=== PATIENT | male | born 1935 | race Native Hawaiian/Other Pacific Islander ===

== ENCOUNTER → 2020-06-20 | Outpatient (CLI) | payer MEDICARE ==
[~2020-06-20] MED LIST: ACHD5005 PO
== END | disposition home or self-care (01) ==
LOC: PREOP 13:28
PROVIDERS: ATTEND Surgery
DX: Z01.818 Encounter for other preprocedural examination (principal)

== ENCOUNTER → 2020-06-21 | Day surgery (SDC) | payer MEDICARE ==
[~2020-06-21] VITALS: Ht 182.9 cm; Wt 83.5 kg
[2020-06-21] VITALS (11 sets, daily range): BP systolic 132–156; BP diastolic 66–95
[~2020-06-21] MED LIST changes: +ACETAMINOPHEN 325 MG TABLET PO PRN; +BUP/EPI 0.25% 1:200,000 (MARCAINE) 30 ML VIAL ONE; +CATHETER FLUSH 10 ML SYR IV PRN; +FAMOTIDINE 20MG/2ML IV (PEPCID) IV ONE; +FAMOTIDINE 20MG/2ML IV (PEPCID) ONE; +HYDROcodone/APAP 5 MG/325 MG (LORTAB) TAB ONE; +HYDROcodone/APAP 5 MG/325 MG (LORTAB) TAB PO ONE; +LACTATED RINGERS 1,000 ML IV PRN; +LIDOCAINE PF 2% 5 ML (XYLOCAINE) VIAL ONE; +LIDOCAINE/EPI 1%-1:100,000 (XYLOCAINE) 20ML ONE; +MUPIROCIN 2% OINT 22 GM (BACTROBAN) TUBE ONE; +ONDANSETRON 4 MG/2 ML (SDV) Z0FRAN IVP PRN; +ONDANSETRON 4 MG/2 ML (SDV) Z0FRAN ONE; +SEVOFLURANE (ULTANE) 15 ML INHAL SOLN ONE; +ceFAZolin 2 GM IV Premixed 50 ML IV ONE; +fentaNYL INJECTION 100 MCG/2 ML AMP ONE; +morphine INJ 10 MG/ML 1ML (SYR OR VIAL) IVP ONE; +morphine INJ 10 MG/ML 1ML (SYR OR VIAL) IVP PRN; +proPOfol 200 MG/20 ML (DIPRIVAN) VIAL IV ONE
--- NOTE | 2020-06-21 10:25 | Discharge Inst-Surgical ---
D/C Lap Instructions-KIDO Reconcile Patient Problems Problems Reviewed?: Yes New, Converted, or Re-Newed RX: RX on Chart Follow Up Appt in 2 weeks Activity as tolerated No driving for 24 hours No driving while on pain medications Incentive Spirometry use every 2 hours while awake Regular Diet Symptoms to Report: Fever over 101 degree F, Nausea/Vomiting Infection Signs and Symptoms to report: Increased redness, Foul odor of wound, Increased drainage Bathing instructions: May shower Operative Area Clean/Dry; Keep incision clean/dry If any problems/questions: Contact your physician or go to Emergency Room SURESH MUSA APRN Jun 21, 2020 10:25
--- NOTE | 2020-06-21 10:28 | Progress Note-Pre Operative ---
Pre-Operative Progress Note H&P Reviewed The H&P was reviewed, patient examined and no changes noted. Date Seen by Provider: Jun 21, 2020 Time Seen by Provider: 10:20 Date H&P Reviewed: Jun 21, 2020 Time H&P Reviewed: 10:13 Pre-Operative Diagnosis: symptomatic skin lesions top of scalp, left ear, and right ankle SURESH MUSA APRN Jun 21, 2020 10:28
--- NOTE | 2020-06-21 14:33 | Progress Note-Post Operative ---
Post-Operative Progess Note Surgeon (s)/Typesetter Perforator Operator (s) Surgeon CLEMENT BELLE MD Typesetter Perforator Operator: fior bravo APRN Pre-Operative Diagnosis SKIN LESIONS Post-Operative Diagnosis symptomatic skin lesions forehead(3x3cm), left ear(4x2cm), right ankle(4x2cm). Procedure & Operative Findings Date of Procedure 06/21/20 Procedure Performed/Findings full thickness excision symptomatic skin lesions forehead(3x3cm) with full thickness skin graft from right neck, left ear(4x2cm) with complex skin flap closure, right ankle(4x2cm) with moderate skin flap closure. Anesthesia Type general LMA with local Estimated Blood Loss Estimated blood loss (mL): minimal Specimens/Packing Specimens Removed skin lesion forehead, left ear, right ankle. CLEMENT BELLE MD Jun 21, 2020 14:33
--- NOTE | 2020-06-22 01:27 | OPERATIVE REPORT ---
DATE OF SERVICE: 06/21/2020 ATTENDING SHOWROOM SALESPERSON: Mariana Pompa APRN. PREOPERATIVE DIAGNOSIS: Symptomatic skin lesion, forehead, left ear, right ankle. POSTOPERATIVE DIAGNOSES: Symptomatic skin lesion, forehead, left ear, right ankle with lesion of the forehead 3 x 3 cm in size, of the left ear 4 x 2 cm in size, and of the right ankle 4 x 2 cm. PROCEDURE PERFORMED: Excision forehead lesion 3 x 3 cm in size with full thickness skin graft taken from the right neck; excision right ear lesion 4 x 2 cm in size with a complex skin flap closure; excision right anterior ankle lesion 4 x 2 cm in size with moderate complexity skin flap closure. SURGEON: Shama Belle MD. SUPERVISOR TOY ASSEMBLY: Mehrdad Lund APRN. ANESTHESIA: General laryngeal mask airway with local. ESTIMATED BLOOD LOSS: Minimal. FINDINGS: Same as postoperative diagnoses. DISPOSITION: The patient tolerated the procedure well. INDICATIONS: The patient is an 85-year-old male, who was referred over to us for three symptomatic lesions. He has had one on his forehead, right of midline for the past several years and states that this would become raised, hyperkeratotic; however, would then usually come off; however, in the past year, this has grown significantly larger in size. Upon examination, the lesion is large exophytic and appears consistent with a basal or squamous cell skin cancer. This lesion was 3 x 3 cm in size. He also has a left ear lesion, which is recurrent. He states that approximately 3 years ago, a skin lesion was identified and this was excised and he again has an exophytic skin lesion of the superior aspect of the left external ear. He also does have a raised skin lesion of the right anterior ankle 4 x 2 cm in size. DESCRIPTION OF PROCEDURE: The patient was brought to the endoscopy suite to the operating room, laid supine on the table. After adequate IV pain and sedative medications and laryngeal mask airway intubation, the ear, forehead and ankle were prepped and draped in standard surgical fashion. We first proceeded with excision of the forehead lesion. This was measured out approximately 3 x 3 cm and fully excised to the aponeurosis using a 15 blade. Good hemostasis was achieved using electrocautery. We then proceeded to take a full-thickness skin graft taken from the base of the right neck 3 x 3 cm in size and full thickness. We then proceeded with a full thickness skin graft to the forehead using interrupted 4-0 Prolene sutures. Good hemostasis was observed. The donor site was then closed by reapproximating the subcutaneous tissue using 4-0 Vicryl interrupted suture, and closing the skin with 4-0 Monocryl running subcuticular suture. We then proceeded with excision of the left ear skin lesion, which was long and along the curvature of the superior and posterior portion of the external ear. The excised area was approximately 4 x 2 cm. This was also encompassing the cartilage of the ear, which was also resected using 15 blade. Good hemostasis was achieved using electrocautery. We then proceeded with a complex skin flap closure after dissecting lateral flaps using Metzenbaum scissors. The skin was then closed using interrupted 4-0 Prolene sutures. The right anterior ankle skin lesion was then excised full thickness using a 15 blade. Moderate complexity lateral skin flaps were then created using Metzenbaum scissors. The lesion was then excised using a 15 blade. The subcutaneous tissue was then reapproximated using 4-0 Vicryl interrupted sutures. Skin was closed using 4-0 Prolene interrupted sutures. The wounds of the forehead and ear were then covered with bacitracin ointment followed by a nonstick gauze. The ankle lesion was covered with a sterile gauze. The patient tolerated the procedure well. We will start IV normal pain medication as well as a clear liquid diet. Once he is tolerating clears, has good pain control with oral pain medications, ambulating well, we will discharge him home. We will have him follow up in approximately one week to reevaluate the wounds as well as to possibly remove a portion of the sutures. Job ID: [id number] DocumentID: [id number] Dictated Date: 06/21/2020 14:42:45 Paving Supervisor Date: 06/22/2020 01:27:11 Dictated By: SHAMA BELLE MD
--- NOTE | 2020-06-22 08:32 | Anesthesia-General Post-Op ---
General Patient Condition Mental Status/LOC: Same as Preop Cardiovascular: Satisfactory Nausea/Vomiting: Absent Respiratory: Satisfactory Pain: Controlled Complications: Absent Post Op Complications Complications None Follow Up Care/Instructions Patient Instructions None needed. Anesthesia/Patient Condition Patient Condition Patient was seen after the procedure yesterday and he was doing well, no complaints, stable vital signs, no apparent adverse anesthesia problems. ABDIFATAH TYSON DO Jun 22, 2020 08:32
== END ==
LOC: SDC 10:00
PROVIDERS: ATTEND Surgery
DX: C44.712 Basal cell carcinoma of skin of right lower limb, including hip (principal); C44.42 Squamous cell carcinoma of skin of scalp and neck; D04.4 Carcinoma in situ of skin of scalp and neck; C44.219 Basal cell carcinoma of skin of left ear and external auricular canal; I25.10 Atherosclerotic heart disease of native coronary artery without angina pectoris; J44.9 Chronic obstructive pulmonary disease, unspecified; K21.9 Gastro-esophageal reflux disease without esophagitis; Z79.899 Other long term (current) drug therapy; Z95.5 Presence of coronary angioplasty implant and graft
CPT/HCPCS: 87081; 88305; 88341; 88342

== ENCOUNTER 2021-01-16 19:33 | Emergency (ER) | payer MEDICARE ==
[~2021-01-16] VITALS: Ht 182.9 cm; Wt 79.5 kg
[~2021-01-16 19:33] MED LIST changes: -ACETAMINOPHEN 325 MG TABLET PO PRN; -BUP/EPI 0.25% 1:200,000 (MARCAINE) 30 ML VIAL ONE; -CATHETER FLUSH 10 ML SYR IV PRN; -FAMOTIDINE 20MG/2ML IV (PEPCID) IV ONE; -FAMOTIDINE 20MG/2ML IV (PEPCID) ONE; -HYDROcodone/APAP 5 MG/325 MG (LORTAB) TAB ONE; -HYDROcodone/APAP 5 MG/325 MG (LORTAB) TAB PO ONE; -LACTATED RINGERS 1,000 ML IV PRN; -LIDOCAINE PF 2% 5 ML (XYLOCAINE) VIAL ONE; -LIDOCAINE/EPI 1%-1:100,000 (XYLOCAINE) 20ML ONE; -MUPIROCIN 2% OINT 22 GM (BACTROBAN) TUBE ONE; -ONDANSETRON 4 MG/2 ML (SDV) Z0FRAN IVP PRN; -ONDANSETRON 4 MG/2 ML (SDV) Z0FRAN ONE; -SEVOFLURANE (ULTANE) 15 ML INHAL SOLN ONE; -ceFAZolin 2 GM IV Premixed 50 ML IV ONE; -fentaNYL INJECTION 100 MCG/2 ML AMP ONE; -morphine INJ 10 MG/ML 1ML (SYR OR VIAL) IVP ONE; -morphine INJ 10 MG/ML 1ML (SYR OR VIAL) IVP PRN; -proPOfol 200 MG/20 ML (DIPRIVAN) VIAL IV ONE
[2021-01-16] MEDS ORDERED: ONDANSETRON 4 MG/2 ML (SDV) Z0FRAN IVP ONE (19:45)
[2021-01-16] MEDS ORDERED: LACTATED RINGERS 1,000 ML IV ONE (19:45)
[2021-01-16 19:46] LABS: BASOPHILS # (AUTO) 0.1 10^3/uL (0.0-0.1); BASOPHILS % (AUTO) 0 % (0-10); EOSINOPHILS # (AUTO) 0.2 10^3/uL (0.0-0.3); EOSINOPHILS % (AUTO) 2 % (0-10); HEMATOCRIT 41 % (40-54); HEMOGLOBIN 13.6 g/dL (13.3-17.7); LYMPHOCYTES # (AUTO) 2.6 10^3/uL (1.0-4.0); LYMPHOCYTES % (AUTO) 19 % (12-44); MEAN CORPUSCULAR HEMOGLOBIN 31 pg (25-34); MEAN CORPUSCULAR HGB CONC 33 g/dL (32-36); MEAN CORPUSCULAR VOLUME 95 fL (80-99); MEAN PLATELET VOLUME 11.5 fL (9.0-12.2); MONOCYTES # (AUTO) 0.9 10^3/uL (0.0-1.0); MONOCYTES % (AUTO) 7 % (0-12); NEUTROPHILS # (AUTO) 9.7 10^3/uL (1.8-7.8); NEUTROPHILS % (AUTO) 72 % (42-75); PLATELET COUNT 260 10^3/uL (130-400); WHITE BLOOD COUNT 13.6 10^3/uL (4.3-11.0)
--- NOTE | 2021-01-16 19:49 | ED Abdominal Pain ---
General Stated Complaint: ABD PAIN Source of Information: Patient Exam Limitations: Other (HARD OF HEARING) History of Present Illness Date Seen by Provider: Jan 16, 2021 Time Seen by Provider: 19:35 Initial Comments PT ARRIVES VIA EMS FROM HOME--LIVES ALONE C/O RIGHT MID AND LOWER ABDOMINAL PAIN, RADIATING TO RIGHT FLANK--PAIN BEGAN TODAY HAS HAD NAUSEA AND VOMITED X 4 TODAY--STATES HE IS GETTING SICK FROM THE PAIN NO DIARRHEA--HAS BEEN CONSTIPATED THE LAST FEW DAYS, LAST BM WAS YESTERDAY NO URINARY SYMPTOMS, OTHER THAN NORMAL SLOW STREAM/SLOW TO START NO FEVER HAS NOT TAKEN ANYTHING FOR PAIN HAS HAD PRIOR CHOLECYSTECTOMY, AND LEFT KIDNEY STONE REMOVED IN THE PAST PCP: SUJATA VAZQUEZ, SEES HERE IN [place] Allergies and Home Medications Allergies Coded Allergies: No Known Drug Allergies (Unverified , 06/20/20) Home Medications Hydrocodone/Acetaminophen 1 Each Tablet, 1 EACH PO Q4H Prescribed by: SURESH MUSA on 06/21/20 1023 Hydrocodone/Acetaminophen 1 Each Tablet, 1 EACH PO Q4-6 HOURS PRN for PAIN Prescribed by: NAZANIN GARCIA on 01/16/212125 Ketorolac Tromethamine 10 Mg Tablet, 10 MG PO Q6H Prescribed by: NAZANIN GARCIA on 01/16/212125 Ondansetron 8 Mg Tab.rapdis, 8 MG PO Q6H Prescribed by: NAZANIN GARCIA on 01/16/212125 Tamsulosin HCl 0.4 Mg Cap, 0.4 MG PO DAILY Prescribed by: NAZANIN GARCIA on 01/16/212125 Patient Home Medication List Home Medication List Reviewed: Yes Review of Systems Review of Systems Constitutional: no symptoms reported Respiratory: No Symptoms Reported Cardiovascular: No Symptoms Reported Gastrointestinal: See HPI, Abdominal Pain, Constipated, Nausea, Vomiting Genitourinary: Denies Burning; Flank Pain; Denies Hematuria, Denies Pain, Denies Urgency Musculoskeletal: see HPI, back pain Skin: no symptoms reported Psychiatric/Neurological: No Symptoms Reported Endocrine: No Symptoms Reported Hematologic/Lymphatic: No Symptoms Reported Past Ctrazll-Pmkmof-Dqcljd Hx Past Med/Social Hx: Reviewed and Corrections made Patient Social History Alcohol Use: Denies Use Drug of Choice: DENIES Smoking Status: Former Smoker Type Used: Cigarettes Recent Hopitalizations: No Seasonal Allergies Seasonal Allergies: No Past Medical History Surgeries: Yes (SKIN CANCERS REMOVED;SHAWNA;LEFT KIDNEY STONE REMOVAL;CARDIAC CATH-STENT X1) Cardiac, Coronary Stent, Gallbladder, Renal Respiratory: Yes COPD Currently Using CPAP: No Currently Using BIPAP: No Cardiac: Yes (NC WITH STENT 2006--HAS NOT SEEN PACKING AND FINAL ASSEMBLY SUPERVISOR IN YEARS) Coronary Artery Disease, Heart Attack, Hypertension Neurological: No Sexually Transmitted Disease: No HIV/AIDS: No Genitourinary: Yes Kidney Stones Gastrointestinal: Yes (S/P SHAWNA) Gall Bladder Disease Musculoskeletal: No Endocrine: No HEENT: Yes Hearing Impairment: Hard of Hearing Cancer: Yes Skin Did You Recieve Any Treatments: Yes What Type of Treatment Did You: Surgical Intervention SKIN CANCERS REMOVED FROM MULTIPLE SITES ON BODY Psychosocial: No Integumentary: Yes (SKIN CANCERS) Blood Disorders: No Physical Exam Vital Signs Vital Signs - First Documented 01/16/21 19:37 Temp 36.5 Pulse 70 Resp 18 B/P (MAP) 182/86 (118) Pulse Ox 94 O2 Delivery Room Air Capillary Refill : Height/Weight/BMI Height: '" Weight: lbs. oz. 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 nml as tested, no motor/sensory deficits, alert, normal mood/affect, oriented x 3 Skin: normal color, warm/dry; No rash Progress/Results/Core Measures Results/Orders Lab Results Laboratory Tests Test 01/16/21 19:37 01/16/21 21:13 Range/Units White Blood Count 13.6 H 4.3-11.0 10^3/uL Red Blood Count 4.36 4.30-5.52 10^6/uL Hemoglobin 13.6 13.3-17.7 g/dL Hematocrit 41 40-54 % Mean Corpuscular Volume 95 80-99 fL Mean Corpuscular Hemoglobin 31 25-34 pg Mean Corpuscular Hemoglobin Concent 33 32-36 g/dL Red Cell Distribution Width 14.4 10.0-14.5 % Platelet Count 260 130-400 10^3/uL Mean Platelet Volume 11.5 9.0-12.2 fL Immature Granulocyte % (Auto) 0 % Neutrophils (%) (Auto) 72 42-75 % Lymphocytes (%) (Auto) 19 12-44 % Monocytes (%) (Auto) 7 0-12 % Eosinophils (%) (Auto) 2 0-10 % Basophils (%) (Auto) 0 0-10 % Neutrophils # (Auto) 9.7 H 1.8-7.8 10^3/uL Lymphocytes # (Auto) 2.6 1.0-4.0 10^3/uL Monocytes # (Auto) 0.9 0.0-1.0 10^3/uL Eosinophils # (Auto) 0.2 0.0-0.3 10^3/uL Basophils # (Auto) 0.1 0.0-0.1 10^3/uL Immature Granulocyte # (Auto) 0.1 0.0-0.1 10^3/uL Prothrombin Time 13.1 12.2-14.7 SEC INR Comment 1.0 0.8-1.4 Activated Partial Thromboplast Time 32 24-35 SEC Sodium Level 141 135-145 MMOL/L Potassium Level 3.6 3.6-5.0 MMOL/L Chloride Level 109 H 98-107 MMOL/L Carbon Dioxide Level 17 L 21-32 MMOL/L Anion Gap 15 H 5-14 MMOL/L Blood Urea Nitrogen 27 H 7-18 MG/DL Creatinine 1.08 0.60-1.30 MG/DL Estimat Glomerular Filtration Rate > 60 BUN/Creatinine Ratio 25 Glucose Level 112 H 70-105 MG/DL Calcium Level 7.8 L 8.5-10.1 MG/DL Corrected Calcium 8.1 L 8.5-10.1 MG/DL Magnesium Level 1.9 1.6-2.4 MG/DL Total Bilirubin 0.8 0.1-1.0 MG/DL Aspartate Amino Transf (AST/SGOT) 19 5-34 U/L Alanine Aminotransferase (ALT/SGPT) 17 0-55 U/L Alkaline Phosphatase 175 H 40-136 U/L Troponin I < 0.028 <0.028 NG/ML Total Protein 6.5 6.4-8.2 GM/DL Albumin 3.6 3.2-4.5 GM/DL Amylase Level 59 25-125 U/L Lipase 14 8-78 U/L Urine Color YELLOW Urine Clarity CLOUDY Urine pH 6.0 5-9 Urine Specific [place] 1.025 H 1.016-1.022 Urine Protein TRACE H NEGATIVE Urine Glucose (UA) NEGATIVE NEGATIVE Urine Ketones NEGATIVE NEGATIVE Urine Nitrite NEGATIVE NEGATIVE Urine Bilirubin NEGATIVE NEGATIVE Urine Urobilinogen 1.0 < = 1.0 MG/DL Urine Leukocyte Esterase NEGATIVE NEGATIVE Urine RBC (Auto) 3+ H NEGATIVE Urine RBC 50-100 H /HPF Urine WBC NONE /HPF Urine Crystals PRESENT H /LPF Urine Amorphous Sediment RARE TAVO URATES H /LPF Urine Bacteria NEGATIVE /HPF Urine Casts NONE /LPF Urine Mucus SMALL H /LPF Urine Culture Indicated NO My Orders Orders - NAZANIN GARCIA DO Ondansetron Injection (Zofran Injectio (01/16/21 19:45) Ed Iv/Invasive Line Start (01/16/21 19:37) Ekg Tracing (01/16/21 19:37) Monitor-Rhythm Ecg Trace Only (01/16/21 19:37) Amylase (01/16/21 19:37) Cbc With Automated Diff (01/16/21 19:37) Comprehensive Metabolic Panel (01/16/21 19:37) Lipase (01/16/21 19:37) Magnesium (01/16/21 19:37) Protime With Inr (01/16/21 19:37) Partial Thromboplastin Time (01/16/21 19:37) Ua Culture If Indicated (01/16/21 19:37) Troponin I (01/16/21 19:37) Ed Iv/Invasive Line Start (01/16/21 19:37) Lactated Ringers (Lr 1000 Ml Iv Solution (01/16/21 19:45) Ct Abd/Pelvis Wo(Kidney Stone) (01/16/21 19:40) Acute Abd Series (01/16/21 19:40) Pantoprazole Injection (Protonix Injecti (01/16/21 20:00) Ketorolac Injection (Toradol Injection) (01/16/21 20:00) Rx-Hydrocodone/Apap 5-325 Mg (Rx-Vicodin (01/16/21 21:30) Rx-Ondansetron Po (Rx-Zofran Po) (01/16/21 21:26) Tamsulosin Capsule (Flomax Capsule) (01/16/21 21:30) Medications Given in ED Current Medications Medications Dose Ordered Sig/Etta Route Start Time Stop Time Status Last Admin Dose Admin Acetaminophen/ Hydrocodone Bitart 1 ea Q4H PRN PO 01/16/21 21:30 01/16/21 22:04 DC 01/16/21 21:47 1 EA Ketorolac Tromethamine 30 mg ONCE ONCE IVP 01/16/21 20:00 01/16/21 20:01 DC 01/16/21 19:57 30 MG Lactated Ringer's 1,000 ml @ 0 mls/hr Q0M ONCE IV 01/16/21 19:45 01/16/21 19:46 DC 01/16/21 19:45 0 MLS/HR Ondansetron HCl 8 mg ONCE ONCE IVP 01/16/21 19:45 01/16/21 19:46 DC 01/16/21 19:45 8 MG Pantoprazole 40 mg ONCE ONCE IV 01/16/21 20:00 01/16/21 20:01 DC 01/16/21 19:53 40 MG Vital Signs/I&O 01/16/21 01/16/21 19:37 21:54 Temp 36.5 Pulse 70 61 Resp 18 18 B/P (MAP) 182/86 (118) 154/68 Pulse Ox 94 95 O2 Delivery Room Air Progress Progress Note : Progress Note GIVEN IV FLUIDS, ZOFRAN AND TORADOL WITH COMPLETE RELIEF OF SYMPTOMS Initial ECG Impression Date: Jan 16, 2021 Initial ECG Impression Time: 19:37 Initial ECG Rate: 69 Initial ECG Rhythm: Normal Sinus Diagnostic Imaging Comments CT ABDOMEN/PELVIS--PER RADIOLOGIST REPORT AT 2056 FINDINGS: The appendix is visualized and normal. There is a calcification seen on axial image 86 and coronal image 69 measuring 4 mm within the distal right ureter. This results in a very mild degree of upstream right-sided hydroureteronephrosis. There are nonobstructing stones within the left greater than right kidneys. The largest left-sided stone is 6 mm. There is no urinoma or other fluid collection. There is a small hiatal hernia. The gallbladder is surgically absent. No pathological bile duct dilatation. The spleen, adrenals and pancreas are nonacute. The atherosclerotic aorta is nonaneurysmal. There is no ileus or bowel obstruction. There is noninflamed diverticulosis of the sigmoid. IMPRESSION: 1. Bilateral nephrolithiasis. Distal right ureteral stone measuring 4 mm results in very mild upstream right-sided hydroureteronephrosis. 2. Normal appendix. No other significant finding. ABDOMEN XRAYS--PER RADIOLOGIST REPORT AT 2056 IMPRESSION: No sign of free air or bowel obstruction. Nonspecific bowel gas pattern. Postoperative changes in right upper quadrant. Reviewed: Reviewed by Me Departure Impression Primary Impression: Right distal ureteral calculus Disposition: HOME, SELF-CARE Condition: Improved Departure-Patient Inst. Referrals: NO,LOCAL PHYSICIAN (PCP) Primary Care Physician LIYA VAZQUEZ APRN (Family) Primary Care Physician JALEESA OSORIO MD Patient Instructions: Kidney Stones (DC), How to Strain Your Urine Add. Discharge Instructions: STRAIN ALL URINE--RETURN ANY STONES TO UROLOGIST'S OFFICE LOTS OF CLEAR LIQUIDS FOLLOW UP WITH DR. OSORIO THIS WEEK--CALL IN AM TO MAKE AN APPOINTMENT RETURN TO ER IF SYMPTOMS WORSEN Scripts Ketorolac Tromethamine (Ketorolac Tromethamine) 10 Mg Tablet 10 MG PO Q6H for Pain, #15 TAB Prov: NAZANIN GARCIA DO 01/16/21 Hydrocodone/Acetaminophen (Hydrocodone-Acetamin 5-325 mg) 1 Each Tablet 1 EACH PO Q4-6 HOURS PRN for PAIN, #20 TAB Prov: NAZANIN GARCIA DO 01/16/21 Ondansetron (Ondansetron Odt) 8 Mg Tab.rapdis 8 MG PO Q6H, #10 TAB Prov: NAZANIN GARCIA DO 01/16/21 Tamsulosin HCl (Flomax) 0.4 Mg Cap 0.4 MG PO DAILY, #10 CAP Prov: NAZANIN GARCIA DO 01/16/21 NAZANIN GARCIA DO Jan 16, 2021 19:49
[2021-01-16 20:00] LABS: PROTHROMBIN TIME PATIENT 13.1 SEC (12.2-14.7)
[2021-01-16] MEDS ORDERED: PANTOPRAZOLE 40 MG (PROTONIX) VIAL IV ONE (20:00)
[2021-01-16] MEDS ORDERED: KETOROLAC 30 MG/ML VIAL IVP ONE (20:00)
[2021-01-16 20:07] LABS: ALANINE AMINOTRANSFERASE 17 U/L (0-55); ALBUMIN 3.6 GM/DL (3.2-4.5); ALKALINE PHOSPHATASE 175 U/L (40-136); AMYLASE 59 U/L (25-125); BILIRUBIN,TOTAL 0.8 MG/DL (0.1-1.0); BUN/CREATININE RATIO 25; CALCIUM 7.8 MG/DL (8.5-10.1); CARBON DIOXIDE 17 MMOL/L (21-32); CHLORIDE 109 MMOL/L (98-107); CREATININE SERUM 1.08 MG/DL (0.60-1.30); GFR ESTIMATED > 60; GLUCOSE 112 MG/DL (70-105); LIPASE 14 U/L (8-78); MAGNESIUM 1.9 MG/DL (1.6-2.4); POTASSIUM 3.6 MMOL/L (3.6-5.0); SODIUM 141 MMOL/L (135-145); TOTAL PROTEIN 6.5 GM/DL (6.4-8.2)
--- NOTE | 2021-01-16 20:40 | Diagnostic Imaging Report ---
INDICATION: Right lower quadrant pain Abdominal series performed with a frontal chest radiograph and supine and upright abdominal films. Single view of the chest demonstrates heart borderline in size. There is mild central vascular congestion. There is no consolidation or pneumothorax or pleural fluid. There is no free intraperitoneal air. Abdominal bowel gas pattern is unremarkable. There is moderate stool throughout the colon. There are surgical clips in the right upper quadrant. There is no overt obstruction or ileus. IMPRESSION: No sign of free air or bowel obstruction. Nonspecific bowel gas pattern. Postoperative changes in right upper quadrant. Dictated by: Dictated on workstation # [id number]
--- NOTE | 2021-01-16 20:50 | Diagnostic Imaging Report ---
PROCEDURE: CT urinary tract, rule out kidney stone. TECHNIQUE: Multiple contiguous axial images were obtained through the abdomen and pelvis without the use of intravenous contrast. Auto Exposure Controls were utilized during the CT exam to meet ALARA standards for radiation dose reduction. INDICATION: Right lower quadrant pain. FINDINGS: The appendix is visualized and normal. There is a calcification seen on axial image 86 and coronal image 69 measuring 4 mm within the distal right ureter. This results in a very mild degree of upstream right-sided hydroureteronephrosis. There are nonobstructing stones within the left greater than right kidneys. The largest left-sided stone is 6 mm. There is no urinoma or other fluid collection. There is a small hiatal hernia. The gallbladder is surgically absent. No pathological bile duct dilatation. The spleen, adrenals and pancreas are nonacute. The atherosclerotic aorta is nonaneurysmal. There is no ileus or bowel obstruction. There is noninflamed diverticulosis of the sigmoid. IMPRESSION: 1. Bilateral nephrolithiasis. Distal right ureteral stone measuring 4 mm results in very mild upstream right-sided hydroureteronephrosis. 2. Normal appendix. No other significant finding. Dictated by: Dictated on workstation # [id number]
[2021-01-16 21:22] LABS: BILIRUBIN,URINE NEGATIVE (NEGATIVE); CLARITY,URINE CLOUDY; COLOR,URINE YELLOW; GLUCOSE, URINE (UA) NEGATIVE (NEGATIVE); KETONES,URINE NEGATIVE (NEGATIVE); LEUKOCYTE ESTERASE ,URINE NEGATIVE (NEGATIVE); NITRITE,URINE NEGATIVE (NEGATIVE); PROTEIN,URINE TRACE (NEGATIVE)
[2021-01-16] MEDS ORDERED: TMSL.4C PO (21:26)
[2021-01-16] MEDS ORDERED: RX-ONDANSETRON 4 MG ODT (ZOFRAN) PPK #4 PO STA (21:26)
[2021-01-16] MEDS ORDERED: ACHD5005 PO (21:26)
[2021-01-16] MEDS ORDERED: KETO10TA PO (21:26)
[2021-01-16] MEDS ORDERED: ONDA8TAB13 PO (21:26)
[2021-01-16] MEDS ORDERED: TAMSULOSIN 0.4 MG (FLOMAX) CAP PO SCH (21:30)
[2021-01-16 21:39] LABS: RBC,URINE 50-100 /HPF
[2021-01-16 21:40] LABS: AMORPHOUS SEDIMENT,UR RARE AMOR URATES /LPF; BACTERIA,URINE NEGATIVE /HPF
[2021-01-16 21:54] VITALS: BP 154/68
== END 2021-01-16 22:03 | disposition home or self-care (01) ==
LOC: EDUNIT# 19:33 → ER 19:34
DX: N13.2 Hydronephrosis with renal and ureteral calculous obstruction (principal); J44.9 Chronic obstructive pulmonary disease, unspecified; I10 Essential (primary) hypertension; I25.2 Old myocardial infarction; Z87.891 Personal history of nicotine dependence
CPT/HCPCS: 36415; 74022; 74176; 80053; 81000; 82150; 83690; 83735; 84484; 85025; 85610; 85730; 93005; 93041

== ENCOUNTER → 2021-01-24 | Outpatient (CLI) | payer MEDICARE ==
[~2021-01-24] MED LIST changes: +KETO10TA PO; +ONDA8TAB13 PO; +TMSL.4C PO
--- NOTE | 2021-01-24 15:35 | Diagnostic Imaging Report ---
INDICATION: Right ureteral calculus. COMPARISON: 01/16/2021 FINDINGS: Two supine radiographic views of the abdomen were obtained. Multiple extraosseous calcifications are seen projecting over the bilateral renal shadows consistent with renal calculi. Ureteral calculus seen on previous CT is not definitively identified on this study. No unexpected radiopaque foreign bodies are identified. Small bowel loops are nondistended. There is no large collection of free intraperitoneal air. Included portions of the lung bases are clear. IMPRESSION: 1. Multiple bilateral nonobstructive renal calculi. 2. Additional extraosseous calcification is not definitively identified to correspond to ureteral calculus seen on prior CT. This may relate to interval clearance. Dictated by: Dictated on workstation # [id number]
== END ==
LOC: RAD 14:13
PROVIDERS: ATTEND Urology
DX: N20.2 Calculus of kidney with calculus of ureter (principal)
CPT/HCPCS: 74018